=== PATIENT | female | born 1975 | race Caucasian/White ===

== ENCOUNTER 2021-06-01 18:32 | Emergency (ER) | payer MEDICAID ==
[~2021-06-01] VITALS: Ht 154.9 cm; Wt 81.4 kg
[2021-06-01] MEDS ORDERED: ACETAMINOPHEN 500 MG TABLET PO ONE (20:15)
[2021-06-01] MEDS ORDERED: KETOROLAC TROMETHAMINE 30 MG/ML VIAL IM ONE (20:15)
[2021-06-01] MEDS ORDERED: ONDANSETRON HCL 4 MG TABLET PO ONE (20:15)
[2021-06-01] MEDS ORDERED: CYCLOBENZAPRINE HCL 10 MG TABLET PO ONE (20:15)
[2021-06-01] MEDS ORDERED: DiphenhydrAMINE HCL 25 MG CAPSULE PO ONE (20:30)
[2021-06-01] MEDS ORDERED: CYCL10TA17 PO (20:52)
[2021-06-01] MEDS ORDERED: NAPR-1025 PO (20:52)
[2021-06-01] MEDS ORDERED: BENZ-70 PO (20:53)
[2021-06-01 21:12] VITALS: BP 151/89
== END 2021-06-01 21:25 | disposition home or self-care (01) ==
LOC: EMS 18:36
DX: G44.209 Tension-type headache, unspecified, not intractable (principal); I10 Essential (primary) hypertension
CPT/HCPCS: 96372; 99284; J1885; Q0162